=== PATIENT | female | born 1960 | race Caucasian/White ===

== ENCOUNTER 2021-11-08 21:26 | Emergency (ER) | payer OTHER, SELFPAY ==
--- NOTE | ~2021-11-08 | XR_ITS ---
EXAMINATION: XR knee RT min 4V DATE: 11/08/2021 22:08 INDICATION: Buckling right knee injury. Generalized right knee pain. TECHNIQUE: Anteroposterior, 2 oblique and crosstable lateral views of the right knee were obtained COMPARISON: None. FINDINGS: Alignment is normal. No fracture. Joint spaces are normal and nonweightbearing imaging. Small bone i sland at the lateral tibial plateau. Small right knee joint effusion without layering lipohemarthrosi s. Soft tissues are unremarkable. IMPRESSION: 1. Small right knee joint effusion. No acute osseous abnormality. Reviewed, dictated and finalized at location A. TCH POLISHER
[2021-11-08 21:39] VITALS: BP 153/82; PULSE 76; RESP 18; TEMP 36.2; O2SAT 100
--- NOTE | 2021-11-08 22:34 | ED.EXTPRO ---
HPI - Extremity Problem General Chief complaint: Extremity Problem,Nontraumatic Stated complaint: right knee pain Time Seen by Provider: 11/08/21 22:25 Source: patient Mode of arrival: wheelchair Limitations: no limitations History of Present Illness HPI Narrative: Patient is a 61-year-old female complain right knee pain, 8 out of 10, dull, worse with walking and movement started 1 week ago but was exacerbated tonight after she ran after her grandson and my knee buckled . Patient states that she has an appointment with marissa Gorman, on Monday due to her right knee pain. Patient denies any calf pain or swelling. Patient denies any other injuries. Related Data Home Medications Medication Instructions Recorded Confirmed Aspir-81 11/08/21 Digestive Adv Multistrain Gmmy 11/08/21 artificial tears(hypromellose) 11/08/21 [Systane Gel] bimatoprost [Lumigan] drp 11/08/21 biotin-keratin [Biotin Plus tablet PO 11/08/21 Keratin] buspirone mg 11/08/21 cholecalciferol (vitamin D3) 50 mcg PO DAILY 11/08/21 [Vitamin D3] esomeprazole magnesium mg 11/08/21 estradiol VAGINAL 11/08/21 fluorometholone drp 11/08/21 fluorometholone [FML Forte] drp 11/08/21 fluticasone propionate INTRANASAL 11/08/21 krill oil mg PO 11/08/21 lifitegrast [Xiidra] drp 11/08/21 lisinopril-hydrochlorothiazide tablet 11/08/21 lorazepam 11/08/21 metformin mg 11/08/21 metoprolol succinate PO 11/08/21 rosuvastatin mg 11/08/21 semaglutide [Ozempic] mg SUBCUT 11/08/21 timolol maleate 11/08/21 venlafaxine mg PO 11/08/21 Allergies Allergy/AdvReac Type Severity Reaction Status Date / Time codeine Allergy Unknown Itching Verified 11/08/21 21:50 morphine Allergy Unknown Itching Verified 11/08/21 21:50 Review of Systems Review of Systems: All systems reviewed & are unremarkable except as noted in HPI and below PMFSH Family History Family History Other Diabetes mellitus Hypertension Social History Social History Smoking status: Never smoker Alcohol intake: current Comments Past medical history: Hypertension, diabetes, hyperlipidemia Exam Const: General: cooperative, comfortable, no acute distress, well developed, alert and awake; No confusion Nutritional Appearance: obese Orientation/consciousness: oriented to person, oriented to place, oriented to time, patient oriented x3 and No confusion Limitations: no limitations HENMT: Head: normal to inspection, normocephalic and atraumatic Ears: hearing grossly normal bilaterally, TM normal on the right and TM normal on the left General nose exam: Normal external nose present, Normal nares present and No nasal discharge present Face and sinus: normal facial exam Mouth: Yes Normal oral and palatal mucosa present, Yes lip normal, Yes tongue normal and Yes oropharynx normal Throat: posterior oropharynx normal, tonsils normal and uvula midline Eyes: General: appearance normal, both eyes and all related structures Pupils: Equal, round and reactive pupils present EOM: EOMs intact bilaterally Neck: Neck: normal visual inspection, full ROM, no lymphadenopathy and no meningeal signs Chest: Chest palpation & inspection: normal inspection of the chest Resp: Effort & Inspection: normal respiratory effort, able to speak in complete sentences, no respiratory distress and not tachypneic Auscultation: clear to auscultation bilaterally, no crackles, no rales, no rhonchi and no wheezes Cardio: Rate: regular rate Rhythm: regular rhythm GI: Inspection: normal to inspection GI Palp: No abdominal tenderness, Yes Soft to palpation, No Tenderness to palpation present (GI), No Guarding due to palpation present (GI), No Rigid due to palpation and No Rebound tenderness present Auscultation: normal bowel sounds : General: Yes no CVA tenderness Back/Spine/Pelvis: Back: no
[2021-11-08] MEDS: KETOROLAC 30 MG/ML VIAL (*BKC) IM (23:05)
[2021-11-08] MEDS: diazePAM INJ (*CRX) 10 MG/2 ML SYRINGE 5 MG IM (23:05)
[2021-11-08 23:20] VITALS: BP 147/63; PULSE 83; RESP 16; O2SAT 97
== END 2021-11-08 23:31 | disposition home or self-care (01) ==
LOC: ANHED 23:01
PROVIDERS: Emergency Provider Emergency Medicine; PCP Pediatrics
DX: S86.911A Strain of unspecified muscle(s) and tendon(s) at lower leg level, right leg, initial encounter (principal); Z79.82 Long term (current) use of aspirin; Z79.84 Long term (current) use of oral hypoglycemic drugs; E11.9 Type 2 diabetes mellitus without complications; Z79.899 Other long term (current) drug therapy; I10 Essential (primary) hypertension; F41.9 Anxiety disorder, unspecified; K58.9 Irritable bowel syndrome, unspecified; X50.9XXA Other and unspecified overexertion or strenuous movements or postures, initial encounter
CPT/HCPCS: 73564; 96372; 99284; J1885; J3360

== ENCOUNTER → 2022-09-02 13:03 | Outpatient (CLI) | payer OTHER, SELFPAY ==
--- NOTE | ~2022-09-02 | US_ITS ---
US axilla LT DATE: 09/02/2022 13:26 INDICATION: Left axillary mass TECHNIQUE: Real-time and color flow imaging of the left axillary soft tissues COMPARISON: None FINDINGS: No soft tissue mass or suspicious shadowing is detected in the area of complaint of left ax illary lump. Several axillary lymph nodes are noted, including one measuring up to 4 cm length, with very thin cor rowena, and smaller approximately 10 x 17 mm and 10 x 13 mm lymph nodes. IMPRESSION: No suspicious mass or adenopathy is suggested Reviewed, dictated and finalized at Location A. Reviewed, dictated and finalized at location A. GE DISPOSAL ENGINEER
--- NOTE | ~2022-09-02 | CT_ITS ---
CT Abdomen and Pelvis with contrast. History: Abdominal pain. Spiral CT of the abdomen and pelvis was performed after the administration of intravenous contrast. 1 00 cc of Omnipaque 350 was administered intravenously without complication. Dose reduction technique was used on this scan by utilizing automated exposure control and iterative reconstruction technique. The dose-length product (DLP) was 942.59 mGy-cm. Findings: Scans through the lung bases demonstrate 8 mm somewhat irregular nodular opacity in the ant eromedial right middle lobe (axial image 3). The liver, spleen, pancreas, adrenals and kidneys are within normal limits. Cholecystectomy clips pre sent. No evidence of aortic aneurysm. No lymphadenopathy is seen. There is no evidence of bowel obstruction. There is no evidence to suggest acute appendicitis or dive rticulitis. Images through the pelvis were performed. Urinary bladder unremarkable. Patient is post hysterectomy. No pelvic mass seen. No ascites is seen. Impression: 8 mm right middle lobe pulmonary nodule. According to Fleischner Society criteria, for a low-risk pat ient, 6-12 month follow-up CT is recommended, then consider additional 18-[address] For a high-ris k patient, follow-up CT scans at 6-12 months and 18-24 months are recommended. No other significant findings. Reviewed, dictated and finalized at location . MILL TENDER Impression: 8 mm right middle lobe pulmonary nodule. According to Fleischner Society criter ia, for a low-risk patient, 6-12 month follow-up CT is recommended, then consid er additional 18-[address] For a high-risk patient, follow-up CT scans at 6- 12 months and 18-24 months are recommended. No other significant findings.
[2022-09-02 14:02] LABS: Estimated Glomerular Filt Rate > 60
== END ==
PROVIDERS: PCP Pediatrics; Visit Provider Pediatrics
DX: R10.32 Left lower quadrant pain (principal); E11.9 Type 2 diabetes mellitus without complications; K75.81 Nonalcoholic steatohepatitis (NASH); E78.2 Mixed hyperlipidemia; D50.9 Iron deficiency anemia, unspecified; I10 Essential (primary) hypertension; K21.9 Gastro-esophageal reflux disease without esophagitis; R53.83 Other fatigue; N95.1 Menopausal and female climacteric states; E66.9 Obesity, unspecified; R22.32 Localized swelling, mass and lump, left upper limb
CPT/HCPCS: 74177; 76882; Q9967

== ENCOUNTER 2022-11-10 00:45 | Day surgery (SDC) | payer OTHER, SELFPAY ==
[2022-11-01 14:22] VITALS: BMI 33.6
[2022-11-10 09:25] VITALS: BP 123/86; PULSE 83; RESP 18; TEMP 37.1; O2SAT 98; BMI 33.3
[2022-11-10] MEDS: LACTATED RINGERS 1,000 ML 150 ML IV CONT (09:47)
[2022-11-10 09:49] LABS: Glucose Point of Care 152 mg/dl (65-105)
--- NOTE | 2022-11-10 09:56 | PM.HPGS ---
History of Present Illness History of Present Illness Consent: Risks, benefits, and alternatives have been discussed and questions answered. Patient agrees to proceed with procedure. Chief complaint: LLQP, change in bowel habits Narrative: Lucille Abreu is a 62 year old female Presents for colonoscopy. Patient reports 1 episode of bright red blood per rectum for this reason referred for colonoscopy. She previously has had mild left lower quadrant discomfort however this no longer present. Her bowel habits are somewhat irregular. She has had colonoscopies several years ago . patient presents today for colonoscopy to evaluate more thoroughly. Family history is noncontributory. Review of Systems Review of Systems: Review of systems noncontributory. [facility] Past Medical History Medical History Allergies Anxiety Diabetes Hypertension IBS (irritable bowel syndrome) Surgical History Surgical History History of back surgery History of carpal tunnel release History of cholecystectomy History of hysterectomy Family History Family History Father Hypertension Heart disease Mother Diabetes mellitus Heart disease Depression Hypertension Sibling Glioblastoma Hypertension Heart disease Grandparent Glioblastoma Social History Social History Smoking status: Never smoker Alcohol intake: former Substance use type: does not use Living arrangements: with family Occupation/Education: occupation 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 Meds Home Medications and Allergies Home Medications Medication Instructions Recorded Confirmed Type Aspir-81 1 tablet PO DAILY 11/08/21 11/02/22 History Digestive Adv Multistrain Gmmy 1 gum PO DAILY 11/08/21 11/02/22 History artificial tears(hypromellose) 0.3 1 drp EACH EYE DAILY 11/08/21 11/02/22 History % eye gel (Systane Gel) bimatoprost 0.01 % eye drops 1 drp EACH EYE DAILY 11/08/21 11/02/22 History (Lumigan) biotin 10,000 mcg-keratin 100 mg 1 tablet PO DAILY 11/08/21 11/02/22 History tablet (Biotin Plus Keratin) buspirone 15 mg tablet 15 mg PO DAILY 11/08/21 11/02/22 History cholecalciferol (vitamin D3) 50 50 mcg PO DAILY 11/08/21 11/02/22 History mcg (2,000 unit) tablet (Vitamin D3) estradiol 0.01% (0.1 mg/gram) 1 applic vaginal WEEKLY 11/08/21 11/02/22 History vaginal cream fluorometholone 0.25 % eye 1 drp EACH EYE DAILY 11/08/21 11/02/22 History drops,suspension (FML Forte) fluticasone propionate 50 1 spray intranasal DAILY 11/08/21 11/02/22 History mcg/actuation nasal spray,suspension krill oil 500 mg capsule 500 mg PO DAILY 11/08/21 11/02/22 History lifitegrast 5 % eye drops in a 1 drp EACH EYE DAILY 11/08/21 11/02/22 History dropperette (Xiidra) lisinopril 20 1 tablet PO DAILY 11/08/21 11/02/22 History mg-hydrochlorothiazide 12.5 mg tablet lorazepam 0.5 mg tablet 0.5 mg PO PRN PRN Anxiety 11/08/21 11/02/22 History metformin 500 mg tablet 500 mg PO BID 11/08/21 11/02/22 History metoprolol succinate 100 mg 100 mg PO DAILY 11/08/21 11/02/22 History tablet,extended release 24 hr naproxen 500 mg tablet (Naprosyn) 500 mg PO BID PRN pain #10 tabs 11/08/21 11/02/22 Rx rosuvastatin 10 mg tablet 10 mg PO DAILY 11/08/21 11/02/22 History semaglutide 0.25 mg or 0.5 mg (2 1 mg subcut WEEKLY 11/08/21 11/02/22 History mg/1.5 mL) subcutaneous pen injector (Ozempic) timolol maleate 0.5 % eye gel 1 drp EACH EYE DAILY 11/08/21 11/02/22 History forming solution venlafaxine 150 mg 150 mg PO DAILY 11/08/21 11/02/22 History capsule,extended release 24 hr esomeprazole magnesium 40 mg 40 mg PO DAILY 10/05/22 11/02/22 History capsule,delayed release (Nexiu
--- NOTE | 2022-11-10 10:28 | WPDANESEPPF ---
Anes - Initial Pre Proc Eval Procedure: Operation Date: 11/10/22 10:30 Proposed Procedures p Colonoscopy - Thuan De Leon MD Date/Time: 11/10/22 10:28 Surgeon: Thuan De Leon MD Pre Op Diagnosis: LLQP, change in bowel habits Patient Data Age: 62 Gender: F Height: 1.57 m Weight: 82.8 kg Last Vital Signs Temp 98.7 F 11/10/22 09:25 Pulse 83 11/10/22 09:25 Resp 18 11/10/22 09:25 BP 123/86 11/10/22 09:25 Pulse Ox 98 11/10/22 09:25 O2 Del Method Room Air 11/10/22 09:25 Allergies Allergy/AdvReac Type Severity Reaction Status Date / Time codeine Allergy Unknown Itching Verified 11/01/22 14:13 morphine Allergy Unknown Itching Verified 11/01/22 14:13 Home Medications Medication Instructions Recorded Confirmed Type Aspir-81 1 tablet PO DAILY 11/08/21 11/02/22 History Digestive Adv Multistrain Gmmy 1 gum PO DAILY 11/08/21 11/02/22 History artificial tears(hypromellose) 0.3 1 drp EACH EYE DAILY 11/08/21 11/02/22 History % eye gel (Systane Gel) bimatoprost 0.01 % eye drops 1 drp EACH EYE DAILY 11/08/21 11/02/22 History (Lumigan) biotin 10,000 mcg-keratin 100 mg 1 tablet PO DAILY 11/08/21 11/02/22 History tablet (Biotin Plus Keratin) buspirone 15 mg tablet 15 mg PO DAILY 11/08/21 11/02/22 History cholecalciferol (vitamin D3) 50 50 mcg PO DAILY 11/08/21 11/02/22 History mcg (2,000 unit) tablet (Vitamin D3) estradiol 0.01% (0.1 mg/gram) 1 applic vaginal WEEKLY 11/08/21 11/02/22 History vaginal cream fluorometholone 0.25 % eye 1 drp EACH EYE DAILY 11/08/21 11/02/22 History drops,suspension (FML Forte) fluticasone propionate 50 1 spray intranasal DAILY 11/08/21 11/02/22 History mcg/actuation nasal spray,suspension krill oil 500 mg capsule 500 mg PO DAILY 11/08/21 11/02/22 History lifitegrast 5 % eye drops in a 1 drp EACH EYE DAILY 11/08/21 11/02/22 History dropperette (Xiidra) lisinopril 20 1 tablet PO DAILY 11/08/21 11/02/22 History mg-hydrochlorothiazide 12.5 mg tablet lorazepam 0.5 mg tablet 0.5 mg PO PRN PRN Anxiety 11/08/21 11/02/22 History metformin 500 mg tablet 500 mg PO BID 11/08/21 11/02/22 History metoprolol succinate 100 mg 100 mg PO DAILY 11/08/21 11/02/22 History tablet,extended release 24 hr naproxen 500 mg tablet (Naprosyn) 500 mg PO BID PRN pain #10 tabs 11/08/21 11/02/22 Rx rosuvastatin 10 mg tablet 10 mg PO DAILY 11/08/21 11/02/22 History semaglutide 0.25 mg or 0.5 mg (2 1 mg subcut WEEKLY 11/08/21 11/02/22 History mg/1.5 mL) subcutaneous pen injector (Ozempic) timolol maleate 0.5 % eye gel 1 drp EACH EYE DAILY 11/08/21 11/02/22 History forming solution venlafaxine 150 mg 150 mg PO DAILY 11/08/21 11/02/22 History capsule,extended release 24 hr esomeprazole magnesium 40 mg 40 mg PO DAILY 10/05/22 11/02/22 History capsule,delayed release (Nexium) sodium,potassium,mag sulfates 17.5 See Rx Instructions PO .COMPLEX 10/20/22 11/02/22 Rx gram-3.13 gram-1.6 gram oral soln #354 mL (Suprep Bowel Prep Kit) Laboratory Tests 11/10/22 09:39 POC Capillary Glucose 152 mg/dl H mg/dl (65-105) Patient hx anesthesia problems: none Family hx anesthesia problems: none Results Review: All pre-operative results and documents have been reviewed as part of the pre-operative evaluation. [facility] Past Medical History Medical History Allergies Anxiety Diabetes Hypertension IBS (irritable bowel syndrome) Surgical History Surgical History History of back surgery History of carpal tunnel release History of cholecystectomy History of hysterectomy Family History Family History Father Hypertension Heart disease Mother Diabetes mellitus Heart disease Depression Hypertension Sibling Glioblastoma Hypertension Heart diseas
[2022-11-10 10:44] VITALS: BP 121/72; PULSE 82; RESP 22; O2SAT 98
[2022-11-10 10:54] VITALS: BP 118/76; PULSE 80; RESP 20; O2SAT 99
[2022-11-10 11:04] VITALS: BP 128/85; PULSE 77; RESP 18; O2SAT 98
== END 2022-11-10 11:08 | disposition home or self-care (01) ==
PROVIDERS: PCP Pediatrics; Visit Provider Internal Medicine Gastroenterology
PROC: 0DJD8ZZ Inspection of Lower Intestinal Tract, Via Natural or Artificial Opening Endoscopic (ICD-10-PCS; CPT 45378; principal; 2022-11-10 10:30)
DX: K64.8 Other hemorrhoids (principal); K58.9 Irritable bowel syndrome, unspecified; I10 Essential (primary) hypertension; E11.9 Type 2 diabetes mellitus without complications; F41.9 Anxiety disorder, unspecified; Z79.84 Long term (current) use of oral hypoglycemic drugs; Z79.82 Long term (current) use of aspirin; Z79.899 Other long term (current) drug therapy; E66.9 Obesity, unspecified; Z68.33 Body mass index [BMI] 33.0-33.9, adult
CPT/HCPCS: 45378; 82948; J2704; J7120

== ENCOUNTER → 2023-02-09 10:29 | Outpatient (CLI) | payer OTHER, SELFPAY ==
--- NOTE | ~2023-02-09 | US_ITS ---
US axilla LT 02/09/2023 10:53 Indication: Follow-up left axillary lymph nodes Procedure: High-resolution left axillary ultrasound Comparison: 09/02/2022 Findings: There are several mildly enlarged left axillary lymph nodes all with normal fatty hilum. La rgest lymph node measures approximately 3.1 cm in length. Impression: 1: Persistent mild left axillary lymphadenopathy, likely reactive. Reviewed, dictated and finalized at location A. Impression: 1: Persistent mild left axillary lymphadenopathy, likely reactive.
== END ==
PROVIDERS: PCP Surgery; Visit Provider Surgery
DX: I88.1 Chronic lymphadenitis, except mesenteric (principal)
CPT/HCPCS: 76882

== ENCOUNTER → 2023-02-09 10:32 | Outpatient (CLI) | payer OTHER, SELFPAY ==
--- NOTE | ~2023-02-09 | DEXA_ITS ---
Bone Density Report Name: ELLIOTT ANTONIO Age: 62 Sex: Female Ethnicity: White Date of : 1960 Indication: postmenopausal; screening for osteoporosis; height loss; hysterectomy; Referring Provider: TESSA PANCHAL Study: Bone densitometry was performed. Exam Date: February 09, 2023 Accession number: [id number] Bone Density: Region BMD T-score Z-score Classification AP Spine (L1-L4) 1.292 2.2 3.7 Normal Femoral Neck (Left) 0.934 0.8 2.1 Normal Total Hip (Left) 1.220 2.3 3.3 Normal Femoral Neck (Right) 0.897 0.4 1.7 Normal Total Hip (Right) 1.163 1.8 2.8 Normal Total Hip Mean 1.192 2.1 3.1 Normal World Health Organization criteria for BMD impression classify patients as: Normal (T-score at or above -1.0), Osteopenia (T-score between -1.0 and -2.5), or Osteoporosis (T-score at or below -2.5). 10-year Fracture Risk: FRAX not reported because: All T-scores for Spine Total, Hip Total, Femoral Neck at or above -1.0 Clinical Information Provided by Patient: Has used the following medications: Vitamin D Has the following medical conditions: Hysterectomy Patient maximum height was 62.5 Menopause Age: 47 No regular weight bearing exercise Does not regularly consume dairy products Drinks caffeinated beverages Onset of menses at age 14 Number of children 2 Impression: The patient has normal bone mass. Discussion: BONE DENSITY IS ABOVE THE MINIMUM DESIRABLE LEVEL AT ALL SKELETAL SITES TESTED. This patient?s bone mineral density is above the minimum desirable level (T-score -1.0 or better) at all sites measured. The patient should follow a healthful lifestyle (good nutrition with adequate calcium and vitamin D, and appropriate weight-bearing exercise). Follow-Up: Consider repeating this study in 5 years or sooner if there is some new clinical indication. Reported by: GRAHAM on 02/09/2023 11:08:00 AM. Reviewed, dictated and finalized at location APatel CRANE
== END ==
PROVIDERS: PCP Pediatrics; Visit Provider Pediatrics
DX: Z00.00 Encounter for general adult medical examination without abnormal findings (principal); R91.1 Solitary pulmonary nodule; Z78.0 Asymptomatic menopausal state
CPT/HCPCS: 77080

== ENCOUNTER → 2023-03-09 13:15 | Outpatient (CLI) | payer OTHER, SELFPAY ==
--- NOTE | ~2023-03-09 | CT_ITS ---
EXAMINATION: CT diagnostic chest wo con DATE: 03/09/2023 13:28 INDICATION: Pulmonary nodule: 8 mm middle lobe nodule noted on 09/02/2022 CT abdomen pelvis examinati on TECHNIQUE: Computed tomography (CT) of the chest was performed without intravenous contrast. Automate d exposure control and iterative reconstruction technique were employed. Exam dose: 142.20 mGy-cm to penelope exam DLP. COMPARISON: 09/02/2022 CT abdomen pelvis FINDINGS: Irregular up to 8 mm stable opacity in the medial segment middle lobe (series 4 image 69), with attenuation measurements within the lesion measuring up to TR 78 Hounsfield units. This is likel y a calcified pulmonary granuloma or scar. No suspicious pulmonary mass lesion is noted. No pulmonary infiltrate or consolidation. No hilar or mediastinal mass lesion or lymphadenopathy is detected. Normal caliber of the thoracic aorta. Heart size is within normal range. Coronary and thoracic aortic calcifications are noted. No pericardial or pleural effusion. Prominent degenerative disc disease in the included lower cervical spine. Diffuse idiopathic skeletal hyperostosis of the thoracic spine. No suspicious osteolytic or osteoblastic lesions are noted. IMPRESSION: Stable 8 mm medial segment middle lobe opacity with calcification, consistent with benig n granuloma or scar further follow-up is not required Reviewed, dictated and finalized at Location A. Reviewed, dictated and finalized at location A. IMPRESSION: Stable 8 mm medial segment middle lobe opacity with calcification, consistent with benign granuloma or scar further follow-up is not required
== END ==
PROVIDERS: PCP Pediatrics; Visit Provider Pediatrics
DX: R91.1 Solitary pulmonary nodule (principal); Z78.0 Asymptomatic menopausal state
CPT/HCPCS: 71250

== ENCOUNTER → 2023-09-05 09:27 | Outpatient (CLI) | payer OTHER, SELFPAY ==
--- NOTE | ~2023-09-05 | US_ITS ---
EXAMINATION: US axilla LT HISTORY: Chronic lymphadenitis of the left axilla TECHNIQUE: Limited left axillary ultrasound is performed. FINDINGS: There are multiple benign lymph nodes of the left axilla. No suspicious cystic or solid mas s or left axillary lymphadenopathy is identified. IMPRESSION: Unremarkable left axillary ultrasound. BI-RADS Category 1: Negative Reviewed, dictated and finalized at location A. TIER
== END ==
PROVIDERS: PCP Surgery; Visit Provider Surgery
DX: I88.1 Chronic lymphadenitis, except mesenteric (principal)
CPT/HCPCS: 76882

== ENCOUNTER 2024-03-19 16:27 | Outpatient (CLI) | payer OTHER, SELFPAY ==
--- NOTE | ~2024-03-19 | XR_ITS ---
EXAM: XR hip LT min 2V DATE: 03/19/2024 16:58 HISTORY: PAIN IN LEFT HIP . COMPARISON: None available. FINDINGS: Normal mineralization. No fracture or dislocation. No lytic or blastic lesion. Lumbar dege nerative disc disease. Degenerative changes in the bilateral SI joints. Mild superior left hip joint space narrowing. Scattered pelvic enthesopathy and hip. Pelvic phleboliths. No erosion or periosteal change. Soft tissues within normal limits. IMPRESSION: Mild left hip osteoarthritis. Bilateral sacroiliitis. Reviewed, dictated and finalized at location K.
== END 2024-03-19 16:28 ==
PROVIDERS: PCP Pediatrics; Visit Provider Pediatrics
DX: M16.12 Unilateral primary osteoarthritis, left hip (principal); M53.3 Sacrococcygeal disorders, not elsewhere classified
CPT/HCPCS: 73502